=== PATIENT | male | born 1955 | race Caucasian/White ===

== ENCOUNTER 2020-12-28 00:26 | Observation (INO) | payer OTHER, MEDICARE ==
[~2020-12-28] VITALS: Ht 170.2 cm; Wt 88.5 kg
[2020-12-28] VITALS (7 sets, daily range): BP systolic 146–187; BP diastolic 55–91
--- NOTE | 2020-12-28 03:42 | NUR ---
Pt arrived to room 262 via EMS, is a/o x4, neurologically wnl, passed bedside Phelan swallow and allowed to have water glass, no complaints of pain, no dizzyness, nausea. Tricia IVEY at [facility] states that Dr. Mistry has spoken to Dr. Lee about pt neuro status. Will continue to monitor.
--- NOTE | 2020-12-28 07:48 | PDOC1 ---
History and Physical Date of Service: DOS: DATE: 12/28/20 TIME: 07:47 Chief Complaint: Chief Complain: Patient did not feel himself as normal History of Present Illness: HPI: 65-year-old male with past medical history of hemorrhoids, hereditary bone spurs who comes in with complaints of lightheadedness and possible syncope and right- sided weakness. 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 He felt he was paralyzed and his son-in-law and daughter had to drive him to the ED. He needed help to be transported out of the car. He did have right-sided weakness and numbness. He did had also right sided neglect. Denies any blurry vision or loss of vision. Denies headaches, difficulty swallowing, chest pain, shortness of breath, abdominal pain, nausea vomiting or dysuria. Patient does endorse some urinary hesitation and decreased flow. Patient was transferred to [facility] ED for higher level of care due to hospital not having an MRI machine. Past Medical/Surgical History: PMH/PSH: Hemorrhoids, hereditary bone spur Allergies: Allergies: Coded Allergies: No Known Drug Allergies (Unverified , 12/28/20) Family History: Family History: Reviewed with no pertinent findings of stroke in the family Social History: Social History: Denies alcohol, drug or tobacco abuse Current Medications: Current Medications Active Scripts Active Reported No Known Medications Prior To Admisstion (Info) Each 1 Each 1X ROS: Review of Systems Review of System REVIEW OF SYSTEMS: GENERAL: Denies weakness SKIN: No bruising, hair changes or rashes. EYES: No blurred, double or loss of vision. NOSE AND THROAT: No history of nosebleeds, hoarseness or sore throat. HEART: No history of palpitations, chest pain or shortness of breath on exertion. LUNGS: Denies cough, hemoptysis, wheezing or shortness of breath. GASTROINTESTINAL: Denies changes in appetite, nausea, vomiting, diarrhea or constipation. GENITOURINARY: No history of frequency, urgency, hesitancy or nocturia. NEUROLOGIC: Denies history of numbness, tingling, or tremor. PSYCHIATRIC: No history of panic, anxiety or depression. ENDOCRINE: No history of heat or cold intolerance, polyuria or polydipsia. EXTREMITIES: Denies joint pain, pain on walking or stiffness. Physical Exam: Vital Signs: Vital Signs Date Time Temp Pulse Resp B/P (MAP) Pulse Ox O2 Delivery O2 Flow Rate FiO2 12/28/20 04:53 Room Air 12/28/20 02:52 98.0 61 19 172/84 (113) 99 98.0 Physcial Exam: GEN: No apparent distress. Alert and oriented HEENT: Normal cephalic, atraumatic, external auditory canals are patent EYES: Extraocular muscles are intact, pupil are equally round and reactive to light and accommodation MUSCULOSKELETAL: Well developed , well nourished, good range of motion ENDOCRINE: No thyromegaly was palpated LYMPHATICS: No cervical chain or axillary nodes were noted HEMATOPOIETIC: No bruising NECK: Supple, no JVD, no thyromegaly was noted LUNGS: Clear to auscultation in all lung rose without rhonchi or wheezing HEART: RRR, S!, S2 present. Peripheral pulses intact, no obvious murmurs noted ABDOMEN: Soft, nontender. Positive bowel sounds, no organomegaly, normal bowel sounds EXTREMITIES: Without clubbing, cyanosis, or edema. Pedal pulses intact. Negative Homans sign NEUROLOGIC: Normal speech and tone. A&O x 3, moves all extremities, no obvious focal deficits PSYCHIATRIC: Normal affect, normal mood. Stable SKIN: No ulcerations or rashes, good skin turgor, no jaundice VASCULAR: Good capillary refill, neurovascular bundle appears to be intact Labs: Labs: Labs reviewed showed no significant findings Images: Images CTA of the head and neck shows no large vessel occlusion. CXR Impression: 1. No acute cardiopulmonary process. Assessment/Plan Assessment/Plan Acute TIA versus ischemic stroke EKG Onset of symptoms > 4.5 hours Admit to medicine for further workup Neuro consult Pending MRI brain, TTE continue telemonitoring for at least 24 hours contine IVF while NPO maintain normoglycemia with goals of 140-180 permissive HTN with goals between 140-180/90-105 for at least 24 hours if tPA administered, maintain BP goals < 180/105 for at least 24 hours continue ASA 81 daily within 48 hours continue high intensity statins pending PT/OT/speech Justifications for Admission Other Justification KELVIN NOVAK MD Dec 28, 2020 07:48
[2020-12-28] MEDS ORDERED: ACETAMINOPHEN 325 MG TABLET. PO PRN ×2 (08:00→08:45)
[2020-12-28] MEDS ORDERED: DOCUSATE SODIUM 100 MG CAPSULE. PO PRN (08:00)
[2020-12-28] MEDS ORDERED: DEXTROSE 50% 25 GM / 50ML DISP.SYRIN. IV PRN (08:00)
[2020-12-28] MEDS ORDERED: ONDANSETRON PF 4 MG/2 ML VIAL. IVP PRN (08:00)
[2020-12-28] MEDS ORDERED: SENNOSIDES 8.6 MG TABLET PO PRN (08:00)
[2020-12-28] MEDS ORDERED: ASPIRIN RECTAL 300 MG SUPP. PR PRN (08:45)
[2020-12-28] MEDS: ASPIRIN ENTERIC COATED 325 MG TABLET.DR. PO SCH (09:20)
[2020-12-28 09:50] LABS: CHOLESTEROL/HDL RATIO 3.3
--- NOTE | 2020-12-28 12:01 | PDOC2 ---
NEUROLOGY CONSULT Date of Service DOS: DATE: 12/28/20 TIME: 12:00 Reason for Consult Reason for Consult: Transient ischemic attack Referring Physician Referring Physician: Dr. Graham History of Present Illness History of Present Illness The patient is a 65-year-old right-handed male who had dinner with his family last night. He then drove home alone and started to feel confused, 19: 30. He had trouble speaking. There was numbness in the right face, arm, and leg. His family members picked him up and brought him to the [facility] emergency department. I see that peak blood pressure was 192/89. By the time he reached the emergency department he had just a little bit of tingling in the right arm. I discussed the case with Dr. Mistry. We agree that this was most likely a transient ischemic attack or hypertensive encephalopathy, and with the rapid resolution of symptoms and the negative examination, there was no need for alteplase. Patient was transferred down here for further work-up. He denies any prior history of stroke, seizure, or head injury. Past Medical History GI: Hemorrhoids Past Surgical History Past Surgical History: Other (Left knee and foot surgery) Family History Family History: Cancer Social History Social History , no alcohol or tobacco, semiretired Current Medications Current Medications Current Medications Sennosides (Senna) 17.2 mg PRN BID PRN PO CONSTIPATION; Start 12/28/20 at 08:00 Docusate Sodium (Colace) 100 mg PRN DAILY PRN PO HARD STOOLS; Start 12/28/20 at 08:00 Ondansetron HCl (Zofran) 4 mg PRN Q6HRS PRN IVP NAUSEA/VOMITING; Start 12/28/20 at 08:00 Dextrose (Dextrose 50%-Water Syringe) 12.5 gm PRN Q15MIN PRN IV SEE COMMENTS; Start 12/28/20 at 08:00 Acetaminophen (Tylenol) 650 mg PRN Q4HRS PRN PO TEMP OVER 100.4F OR MILD PAIN; Start 12/28/20 at 08:00; Status Cancel Acetaminophen (Tylenol) 650 mg PRN Q6HRS PRN PO MILD PAIN / TEMP > 100.3'F Last administered on 12/28/20at 10:00; Start 12/28/20 at 08:45 Aspirin (Ecotrin) 325 mg DAILYWBKFT PO Last administered on 12/28/20at 09:20; Start 12/28/20 at 09:00 Aspirin (Aspirin Rectal Supp) 300 mg PRN DAILY PRN VT IF UNABLE TO TAKE PO; Start 12/28/20 at 08:45 Atorvastatin Calcium (Lipitor) 40 mg QHS PO ; Start 12/28/20 at 21:00 Active Scripts Active Reported No Known Medications Prior To Admisstion (Info) Each 1 Each MC 1X Allergies Allergies: Coded Allergies: No Known Drug Allergies (Unverified , 12/28/20) ROS Review of System Negative for fever, chills, weight loss, shortness of breath, chest pain, indigestion, hematochezia, melena, and dysuria. Full 14-point review of systems is negative. Physical Exam Physical Examination General: Well-developed, well-nourished white male in no acute distress HEENT: Normocephalic andatraumatic.Temporal arteriespulsatile and nontender. Neck: Supple without bruit, no meningismus Musculoskeletal: Stability:see neurologic. Gait exam:see neurologic. Tone:see neurologic.Strength:see neurologic. Neurological: Mental Status:intact, orientation, memory, attention span/concentration, language, fund of knowledge normal. Cranial Nerves:Pupils equal and reactive to light, extraocular movements areintact, visual rose are full to confrontation. Facial sensation is normal. There is no facial asymmetry. Vestibulo-ocular reflex is intact. Palate elevates and tongue protrudes in midline. All other cranial related problems are negative except as mentioned before.Reflexes:2+ and symmetric with flexor plantar responses. Motor:5/5 strength with normal tone and bulk. Coordination:Finger-nose finger and erph-qj-lyer testing are normal. Rapid alternating movements and fine finger movements are intact. Gait:Normal, including tandem. Sensory:Normal pinprick, vibration, light touch, proprioception. Vitals VITALS Vital Signs Date Time Temp Pulse Resp B/P (MAP) Pulse Ox O2 Delivery O2 Flow Rate FiO2 12/28/20 10:58 98.3 59 16 166/86 (112) 98 Room Air 98.3 Labs Labs Lab Results, [facility] Laboratory Tests Test 12/27/20 19:41 12/27/20 19:44 12/27/20 19:49 Prothrombin Time 10.0 SEC (9.4-11.4) Prothrombin Time INR 1.0 (0.9-1.1) Activated Partial Thromboplast Time 25 SEC (23-33) Glucose (Fingerstick) 91 mg/dL (70-99) White Blood Count 10.8 x10^3/uL (4.0-11.0) Red Blood Count 4.83 x10^6/uL (4.30-5.70) Hemoglobin 14.6 g/dL (13.0-17.5) Hematocrit 43.1 % (39.0-53.0) Mean Corpuscular Volume 89 fL (79-100) Mean Corpuscular Hemoglobin 30 pg (25-35) Mean Corpuscular Hemoglobin Concent 34 g/dL (31-37) Red Cell Distribution Width 13.0 % (11.5-14.5) Platelet Count 191 x10^3/uL (140-400) Neutrophils (%) (Auto) 61 % (31-73) Lymphocytes (%) (Auto) 23 % (24-48) L Monocytes (%) (Auto) 14 % (0-9) H Eosinophils (%) (Auto) 2 % (0-3) Basophils (%) (Auto) 1 % (0-3) Neutrophils # (Auto) 6.6 x10^3uL (1.8-7.7) Lymphocytes # (Auto) 2.5 x10^3/uL (1.0-4.8) Monocytes # (Auto) 1.5 x10^3/uL (0.0-1.1) H Eosinophils # (Auto) 0.2 x10^3/uL (0.0-0.7) Basophils # (Auto) 0.1 x10^3/uL (0.0-0.2) D-Dimer (Jagruti) 0.30 mg/L (0.00-0.50) Sodium Level 143 mmol/L (136-145) Potassium Level 3.7 mmol/L (3.5-5.1) Chloride Level 106 mmol/L (98-107) Carbon Dioxide Level 28 mmol/L (21-32) Anion Gap 9 (6-14) Blood Urea Nitrogen 24 mg/dL (8-26) Creatinine 0.9 mg/dL (0.7-1.3) Estimated GFR (Cockcroft-Gault) 84.4 BUN/Creatinine Ratio 27 (6-20) H Glucose Level 86 mg/dL (70-99) Calcium Level 9.0 mg/dL (8.5-10.1) Magnesium Level 2.1 mg/dL (1.8-2.4) Total Bilirubin 0.5 mg/dL (0.2-1.0) Aspartate Amino Transferase (AST) 22 U/L (15-37) Alanine Aminotransferase (ALT) 36 U/L (16-63) Alkaline Phosphatase 87 U/L (46-116) Troponin I Quantitative < 0.017 ng/mL (0-0.055) Total Protein 6.8 g/dL (6.4-8.2) Albumin 4.0 g/dL (3.4-5.0) Albumin/Globulin Ratio 1.4 (1.0-1.7) Laboratory Tests Test 12/28/20 09:10 Triglycerides Level 54 mg/dL (0-150) Cholesterol Level 124 mg/dL (0-200) LDL Cholesterol, Calculated 75 mg/dL (0-100) VLDL Cholesterol, Calculated 11 mg/dL (0-40) Non-HDL Cholesterol Calculated 86 mg/dL (0-129) HDL Cholesterol 38 mg/dL (40-60) Cholesterol/HDL Ratio 3.3 Laboratory Tests Test 12/28/20 09:10 Triglycerides Level 54 mg/dL (0-150) Cholesterol Level 124 mg/dL (0-200) LDL Cholesterol, Calculated 75 mg/dL (0-100) VLDL Cholesterol, Calculated 11 mg/dL (0-40) Non-HDL Cholesterol Calculated 86 mg/dL (0-129) HDL Cholesterol 38 mg/dL (40-60) Cholesterol/HDL Ratio 3.3 Images Images CTA head and neck INDICATION: Right-sided numbness, aphasia TECHNIQUE: Sequential axial images through the head and neck obtained following the administration 100 mL of Omni 350 IV contrast. Sagittal and coronal reformatted images were reconstructed from the axial data and reviewed. Comparisons: CT head without contrast same day FINDINGS: CTA NECK: Visualized portions of the thoracic aorta are unremarkable. Three-vessel aortic arch configuration common origin brachiocephalic and left common carotid artery and separate origin of the left vertebral artery. Right common carotid artery is patent without evidence of stenosis, occlusion or aneurysm. Cervical segment of the right internal carotid artery is patent without evidence of stenosis, occlusion or aneurysm. Left common carotid artery is patent without evidence of stenosis, occlusion or aneurysm. Cervical segment of the left internal carotid artery is patent without evidence of stenosis, occlusion or aneurysm. Right vertebral artery is patent to basilar confluence without evidence stenosis, occlusion or aneurysm. Left vertebral artery is patent to basilar confluence without evidence of stenosis, occlusion or aneurysm. Visualized paraspinal soft tissues are unremarkable. CTA HEAD: Intracranial segments of the right internal carotid artery are patent without evidence of stenosis, occlusion or aneurysm. Right MCA is patent. Right ROWENA is patent. Intracranial segments of the left internal carotid artery are patent without evidence of stenosis, occlusion or aneurysm. Left MCA is patent. Left ROWENA is patent. Basilar artery is patent without evidence of stenosis, occlusion or aneurysm. engineer automated equipment are patent bilaterally. IMPRESSION: 1. No large vessel occlusion. 2. Patent intracranial cervical arterial vasculature without evidence of stenosis, occlusion or aneurysm. CT brain without contrast. HISTORY: Right-sided weakness CT scan the brain was done without contrast. Sinuses are clear. A skull fracture is not identified. There is no intracranial hemorrhage or subdural hematoma. There is no mass effect or shift of the midline. There is a cavum septum pellucidum between the lateral ventricles. Lateral ventricles are normal in size. An acute CVA is not identified. IMPRESSION: 1. No intracranial hemorrhage or acute finding. Assessment/Plan Assessment/Plan Impression: Transient ischemic attack, but more likely this was just hypertensive encephalopathy. No sign that he had a stroke. Normal lipid panel Recommendations: Treat blood pressure, tighten control if MRI negative for stroke He does not need a statin Rehabilitation screening Does not need the rest of the stroke pathway especially if MRI negative Echocardiogram Aim for discharge later today Follow-up with a primary care to monitor blood pressure Follow-up with me as needed Also discussed with patient's daughter. Thank you for letting me help with the patient's care. JOY KRAFT MD Dec 28, 2020 12:00
--- NOTE | 2020-12-28 14:35 | NUR ---
SS following for discharge planning. SS reviewed pt chart and discussed with pt RN. Pt is from home and is currently on room air. Neurology consulted. Brain MRI and ECHO ordered. Maurer being placed today due to urinary retention. PT/OT/ST ordered. PO diet. PT/OT recommended home independent. SS will continue to follow for discharge planning.
[2020-12-28] MEDS: TAMSULOSIN 0.4 MG CAP.ER.24H. PO SCH (15:15)
--- NOTE | 2020-12-28 15:48 | RAD ---
EXAMINATION: Magnetic resonance imaging (MRI) of the brain and brainstem without contrast 12/28/2020 1 :30 PM HISTORY: Right-sided paresthesias, TIA TECHNIQUE: Multiplanar multi-weighted MRI of the brain and brainstem was performed without intravenou s contrast using the general brain protocol. COMPARISON: None available. FINDINGS: The scalp and calvarium are normal. The superior sagittal sinus demonstrates normal venous flow. The corpus callosum is normal in shape and signal intensity. The posterior fossa is unremarkable. The p ituitary and sella are normal. The brainstem and craniocervical junction are unremarkable. Cavum yamini i interpositi. Diffusion weighted images reveal no hyperintensities to suggest acute cerebral infarction. The suscep tibility weighted sequences reveal no evidence of acute or chronic hemorrhage. The ventricles are nor mal in size and position without evidence of hydrocephalus. The paranasal sinuses are normal. The visualized portions of the mastoids are unremarkable. The orbi ts appear normal. Normal flow voids are demonstrated in the carotid arteries and basilar artery. IMPRESSION: No evidence for acute or subacute ischemia. 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 Electronically signed by: Doris Steel MD (12/28/2020 3:46 PM) [id number]
[2020-12-28] MEDS: amLODIPine BESYLATE 10 MG TABLET PO SCH (16:42)
[2020-12-28] MEDS ORDERED: ATORVASTATIN CALCIUM 40 MG TABLET. PO SCH (21:00)
[2020-12-29 02:18] VITALS: BP 149/60
[2020-12-29 06:37] LABS: CALCIUM 8.5 mg/dL (8.5-10.1); CREATININE 0.9 mg/dL (0.7-1.3); GFR 84.4; MAGNESIUM 2.3 mg/dL (1.8-2.4); PHOSPHORUS 2.7 mg/dL (2.6-4.7); POTASSIUM 4.1 mmol/L (3.5-5.1)
[2020-12-29 06:41] LABS: BASO % 0 % (0-3); EOS # 0.1 x10^3/uL (0.0-0.7); EOS % 2 % (0-3); HEMATOCRIT 42.9 % (39.0-53.0); HEMOGLOBIN 14.5 g/dL (13.0-17.5); LYMPH # 1.6 x10^3/uL (1.0-4.8); LYMPH % 18 % (24-48); MEAN CORPUSCULAR HEMOGLOBIN 30 pg (25-35); MEAN CORPUSCULAR HGB CONC 34 g/dL (31-37); MEAN CORPUSCULAR VOLUME 89 fL (79-100); MONO # 0.9 x10^3/uL (0.0-1.1); MONO % 11 % (0-9); NEUT # 5.9 x10^3/uL (1.8-7.7); NEUT % 69 % (31-73); PLATELET COUNT 187 x10^3/uL (140-400); RED BLOOD COUNT 4.82 x10^6/uL (4.30-5.70); RED CELL DISTRIBUTION WIDTH 13.4 % (11.5-14.5); WHITE BLOOD COUNT 8.5 x10^3/uL (4.0-11.0)
[2020-12-29] MEDS ORDERED: AMLO-187 PO (08:02)
[2020-12-29] MEDS ORDERED: TAMS0.4C97 PO (08:02)
--- NOTE | 2020-12-29 08:03 | DISCH ---
DISCHARGE INSTRUCTIONS Condition on Discharge Condition on Discharge: Stable Activity After Discharge Activity Instructions for Disc: Activity as tolerated Lifting Instructions after Dis: No pulling or pushing Exercise Instruction after Dis: Walk 15 min, 3 x per day Driving Instructions after Dis: Do not drive today Diet after Discharge Diet after Discharge: Low Sodium 2 gm Follow-Up Follow up with: PCP within 2 weeks of discharge for blood pressure control Follow Up With: Neurology as needed EKLVIN NOVAK MD Dec 29, 2020 08:03
[2020-12-29] MEDS: ASPIRIN ENTERIC COATED 325 MG TABLET.DR. PO SCH (09:18)
[2020-12-29] MEDS: amLODIPine BESYLATE 10 MG TABLET PO SCH (09:18)
[2020-12-29] MEDS: TAMSULOSIN 0.4 MG CAP.ER.24H. PO SCH (09:18)
--- NOTE | 2020-12-29 09:59 | NUR ---
SS following up with discharge planning. SS reviewed pt chart and discussed with pt RN. Pt is currently on room air. PT recommended home independent. Discharge order on the chart for home with self care.
--- NOTE | 2020-12-29 10:26 | CARD ---
MR#: [id number] Date of Study: 12/29/2020 Ordering Physician: JOY KRAFT, Referring Physician: JOY KRAFT, Tech: Cici Doyle [facility] APPROVED REPORT EXAM: Two-dimensional and M-mode echocardiogram with Doppler and color Doppler. Other Information Quality : AverageHR: 60bpm Rhythm : NSR INDICATION CVA/TIA RISK FACTORS Hypertension Obesity 2D DIMENSIONS RVDd3.1 (2.9-3.5cm)Left Atrium(2D)4.1 (1.6-4.0cm) IVSd1.2 (0.7-1.1cm)Aortic Root(2D)2.7 (2.0-3.7cm) LVDd4.5 (3.9-5.9cm)LVOT Diameter2.2 (1.8-2.4cm) PWd1.2 (0.7-1.1cm)LVDs2.1 (2.5-4.0cm) FS (%) 52.4 %SV78.0 ml LVEF(%)83.6 (>50%) Aortic Valve AoV Peak Chintan.157.8cm/sAoV VTI31.9cm AO Peak GR.10.0mmHgLVOT Peak Chintan.128.8cm/s AO Mean GR.4mmHgAVA (VMAX)3.22cm2 Mitral Valve MV E Whdfxgnf61.0cm/sMV DECEL [id number] MV A Wnnhczbe65.3cm/sE/A Ratio0.8 Pulmonary Valve PV Peak Rmfcoces651.8cm/s Tricuspid Valve TR P. [id number]/sTR Peak Gr.31mmHg LEFT VENTRICLE The left ventricle is normal size. There is mild to moderate concentric left ventricular hypertrophy. The left ventricular systolic function is normal and the ejection fraction is within normal range. E stimated ejection fraction 60-65%. There is normal LV segmental wall motion. The left ventricular delmar stolic function and filling is normal for age. No left ventricle thrombus noted on this study. RIGHT VENTRICLE The right ventricle is normal size. There is normal right ventricular wall thickness. The right ventr icular systolic function is normal. ATRIA The left atrium size is normal. The right atrium size is normal. The interatrial septum is intact wit h no evidence for an atrial septal defect or patent foramen ovale as noted on 2-D or Doppler imaging. AORTIC VALVE The aortic valve is normal in structure and function. Doppler and Color Flow revealed no significant aortic regurgitation. There is no significant aortic valvular stenosis. MITRAL VALVE The mitral valve is normal in structure and function. There is no evidence of mitral valve prolapse. There is no mitral valve stenosis. Doppler and Color Flow revealed no mitral valve regurgitation note d. TRICUSPID VALVE The tricuspid valve is normal in structure and function. Doppler and Color Flow revealed trace tricus pid regurgitation. Estimated PAP 33 mmHg. There is no tricuspid valve stenosis. PULMONIC VALVE Doppler and Color Flow revealed mild pulmonic valvular regurgitation. There is no pulmonic valvular s tenosis. GREAT VESSELS The aortic root is normal in size. The ascending aorta is normal in size. The IVC is normal in size a nd collapses >50% with inspiration. PERICARDIAL EFFUSION There is no evidence of significant pericardial effusion. Critical Notification Critical Value: No <Conclusion> The left ventricular systolic function is normal and the ejection fraction is within normal range. E stimated ejection fraction 60-65%. There is normal LV segmental wall motion. There is mild to moderate concentric left ventricular hypertrophy. Signed by : Bharath Figueroa, Electronically Approved : 12/29/2020 10:26:00
[2020-12-29 11:00] VITALS: BP 147/74
[2020-12-29] MEDS ORDERED: ASPI-886 PO (12:23)
--- NOTE | 2020-12-29 13:03 | PDOC ---
PROGRESS NOTES Date of Service DATE: 12/29/20 TIME: 12:59 Assessment Transient ischemic attack, but more likely this was just hypertensive encephalopathy. No sign that he had a stroke. He still has some persistent visual symptoms and tingling in the right arm Normal lipid panel Plan Okay for discharge Amlodipine He does not need a statin Ecotrin 81 mg daily Follow-up with me as needed Subjective Complains of some distorted vision in the right eye or right visual field, also tingling in the right arm Objective Vital Signs Date Time Temp Pulse Resp B/P (MAP) Pulse Ox O2 Delivery O2 Flow Rate FiO2 12/29/20 11:00 98.7 60 16 147/74 (98) 97 Room Air 98.7 Intake and Output 12/29/20 07:00 Intake Total 500 ml Balance 500 ml Intake Oral 500 ml # Voids 2 PHYSICAL EXAM Alert. Oriented to time, place and person. PERRL. EOMI. CN: no focal findings. Muscle tone: normal. Muscle strength: 5/5 DTR: 2+ Plantar reflex: Flexor Gait: not examined in bed. Sensory exam: no abnormal findings. No cerebellar signs elicited. Review of Relevant I have reviewed the following items richard (where applicable) has been applied. Labs Laboratory Tests Test 12/28/20 09:10 12/29/20 05:53 12/29/20 05:58 Triglycerides Level 54 mg/dL (0-150) Cholesterol Level 124 mg/dL (0-200) LDL Cholesterol, Calculated 75 mg/dL (0-100) VLDL Cholesterol, Calculated 11 mg/dL (0-40) Non-HDL Cholesterol Calculated 86 mg/dL (0-129) HDL Cholesterol 38 mg/dL (40-60) Cholesterol/HDL Ratio 3.3 White Blood Count 8.5 x10^3/uL (4.0-11.0) Red Blood Count 4.82 x10^6/uL (4.30-5.70) Hemoglobin 14.5 g/dL (13.0-17.5) Hematocrit 42.9 % (39.0-53.0) Mean Corpuscular Volume 89 fL (79-100) Mean Corpuscular Hemoglobin 30 pg (25-35) Mean Corpuscular Hemoglobin Concent 34 g/dL (31-37) Red Cell Distribution Width 13.4 % (11.5-14.5) Platelet Count 187 x10^3/uL (140-400) Neutrophils (%) (Auto) 69 % (31-73) Lymphocytes (%) (Auto) 18 % (24-48) Monocytes (%) (Auto) 11 % (0-9) Eosinophils (%) (Auto) 2 % (0-3) Basophils (%) (Auto) 0 % (0-3) Neutrophils # (Auto) 5.9 x10^3/uL (1.8-7.7) Lymphocytes # (Auto) 1.6 x10^3/uL (1.0-4.8) Monocytes # (Auto) 0.9 x10^3/uL (0.0-1.1) Eosinophils # (Auto) 0.1 x10^3/uL (0.0-0.7) Basophils # (Auto) 0.0 x10^3/uL (0.0-0.2) Sodium Level 141 mmol/L (136-145) Potassium Level 4.1 mmol/L (3.5-5.1) Chloride Level 108 mmol/L (98-107) Carbon Dioxide Level 26 mmol/L (21-32) Anion Gap 7 (6-14) Blood Urea Nitrogen 14 mg/dL (8-26) Creatinine 0.9 mg/dL (0.7-1.3) Estimated GFR (Cockcroft-Gault) 84.4 Glucose Level 109 mg/dL (70-99) Calcium Level 8.5 mg/dL (8.5-10.1) Phosphorus Level 2.7 mg/dL (2.6-4.7) Magnesium Level 2.3 mg/dL (1.8-2.4) Laboratory Tests Test 12/29/20 05:53 12/29/20 05:58 White Blood Count 8.5 x10^3/uL (4.0-11.0) Red Blood Count 4.82 x10^6/uL (4.30-5.70) Hemoglobin 14.5 g/dL (13.0-17.5) Hematocrit 42.9 % (39.0-53.0) Mean Corpuscular Volume 89 fL (79-100) Mean Corpuscular Hemoglobin 30 pg (25-35) Mean Corpuscular Hemoglobin Concent 34 g/dL (31-37) Red Cell Distribution Width 13.4 % (11.5-14.5) Platelet Count 187 x10^3/uL (140-400) Neutrophils (%) (Auto) 69 % (31-73) Lymphocytes (%) (Auto) 18 % (24-48) Monocytes (%) (Auto) 11 % (0-9) Eosinophils (%) (Auto) 2 % (0-3) Basophils (%) (Auto) 0 % (0-3) Neutrophils # (Auto) 5.9 x10^3/uL (1.8-7.7) Lymphocytes # (Auto) 1.6 x10^3/uL (1.0-4.8) Monocytes # (Auto) 0.9 x10^3/uL (0.0-1.1) Eosinophils # (Auto) 0.1 x10^3/uL (0.0-0.7) Basophils # (Auto) 0.0 x10^3/uL (0.0-0.2) Sodium Level 141 mmol/L (136-145) Potassium Level 4.1 mmol/L (3.5-5.1) Chloride Level 108 mmol/L (98-107) Carbon Dioxide Level 26 mmol/L (21-32) Anion Gap 7 (6-14) Blood Urea Nitrogen 14 mg/dL (8-26) Creatinine 0.9 mg/dL (0.7-1.3) Estimated GFR (Cockcroft-Gault) 84.4 Glucose Level 109 mg/dL (70-99) Calcium Level 8.5 mg/dL (8.5-10.1) Phosphorus Level 2.7 mg/dL (2.6-4.7) Magnesium Level 2.3 mg/dL (1.8-2.4) Medications Current Medications Sennosides (Senna) 17.2 mg PRN BID PRN PO CONSTIPATION; Start 12/28/20 at 08:00 Docusate Sodium (Colace) 100 mg PRN DAILY PRN PO HARD STOOLS; Start 12/28/20 at 08:00 Ondansetron HCl (Zofran) 4 mg PRN Q6HRS PRN IVP NAUSEA/VOMITING; Start 12/28/20 at 08:00 Dextrose (Dextrose 50%-Water Syringe) 12.5 gm PRN Q15MIN PRN IV SEE COMMENTS; Start 12/28/20 at 08:00 Acetaminophen (Tylenol) 650 mg PRN Q4HRS PRN PO TEMP OVER 100.4F OR MILD PAIN; Start 12/28/20 at 08:00; Status Cancel Acetaminophen (Tylenol) 650 mg PRN Q6HRS PRN PO MILD PAIN / TEMP > 100.3'F Last administered on 12/28/20at 10:00; Start 12/28/20 at 08:45 Aspirin (Ecotrin) 325 mg DAILYWBKFT PO Last administered on 12/29/20at 09:18; Start 12/28/20 at 09:00 Aspirin (Aspirin Rectal Supp) 300 mg PRN DAILY PRN ME IF UNABLE TO TAKE PO; Start 12/28/20 at 08:45 Atorvastatin Calcium (Lipitor) 40 mg QHS PO ; Start 12/28/20 at 21:00 Tamsulosin HCl (Flomax) 0.4 mg DAILY PO Last administered on 12/29/20at 09:18; Start 12/28/20 at 15:00 Amlodipine Besylate (Norvasc) 10 mg DAILY PO Last administered on 12/29/20at 09:18; Start 12/28/20 at 16:30 Active Scripts Active Amlodipine Besylate 10 Mg Tablet 10 Mg PO DAILY 30 Days Flomax (Tamsulosin Hcl) 0.4 Mg Cap.er.24h 0.4 Mg PO DAILY 30 Days Reported Aspirin Ec (Aspirin) 81 Mg Tablet. 1 Tab PO DAILY Vitals/I & O Vital Sign - Last 24 Hours 12/28/20 12/28/20 12/28/20 12/28/20 15:00 16:42 19:19 20:00 Temp 97.9 97.9 97.9 97.9 Pulse 60 56 62 Resp 16 16 B/P (MAP) 168/84 (112) 183/89 173/71 (105) Pulse Ox 99 O2 Delivery Room Air Room Air Room Air 12/28/20 12/29/20 12/29/20 12/29/20 23:18 02:18 08:15 09:18 Temp 98.0 98.0 98.0 98.0 Pulse 58 66 63 Resp 16 16 B/P (MAP) 146/55 (85) 149/60 (89) 138/77 Pulse Ox 98 97 O2 Delivery Room Air Room Air Room Air 12/29/20 11:00 Temp 98.7 98.7 Pulse 60 Resp 16 B/P (MAP) 147/74 (98) Pulse Ox 97 O2 Delivery Room Air Intake and Output 12/28/20 12/28/20 12/29/20 15:00 23:00 07:00 Intake Total 180 ml 120 ml 200 ml Balance 180 ml 120 ml 200 ml Images MRI brain: The scalp and calvarium are normal. The superior sagittal sinus demonstrates normal venous flow. The corpus callosum is normal in shape and signal intensity. The posterior fossa is unremarkable. The pituitary and sella are normal. The brainstem and craniocervical junction are unremarkable. Cavum veli interpositi. Diffusion weighted images reveal no hyperintensities to suggest acute cerebral infarction. The susceptibility weighted sequences reveal no evidence of acute or chronic hemorrhage. The ventricles are normal in size and position without evidence of hydrocephalus. The paranasal sinuses are normal. The visualized portions of the mastoids are unremarkable. The orbits appear normal. Normal flow voids are demonstrated in the carotid arteries and basilar artery. IMPRESSION: No evidence for acute or subacute ischemia. 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 Echocardiogram: LEFT VENTRICLE The left ventricle is normal size. There is mild to moderate concentric left ventricular hypertrophy. The left ventricular systolic function is normal and the ejection fraction is within normal range. Estimated ejection fraction 60- 65%. There is normal LV segmental wall motion. The left ventricular diastolic function and filling is normal for age. No left ventricle thrombus noted on this study. RIGHT VENTRICLE The right ventricle is normal size. There is normal right ventricular wall thickness. The right ventricular systolic function is normal. ATRIA The left atrium size is normal. The right atrium size is normal. The interatrial septum is intact with no evidence for an atrial septal defect or patent foramen ovale as noted on 2-D or Doppler imaging. AORTIC VALVE The aortic valve is normal in structure and function. Doppler and Color Flow revealed no significant aortic regurgitation. There is no significant aortic valvular stenosis. MITRAL VALVE The mitral valve is normal in structure and function. There is no evidence of mitral valve prolapse. There is no mitral valve stenosis. Doppler and Color Flow revealed no mitral valve regurgitation noted. TRICUSPID VALVE The tricuspid valve is normal in structure and function. Doppler and Color Flow revealed trace tricuspid regurgitation. Estimated PAP 33 mmHg. There is no tricuspid valve stenosis. PULMONIC VALVE Doppler and Color Flow revealed mild pulmonic valvular regurgitation. There is no pulmonic valvular stenosis. GREAT VESSELS The aortic root is normal in size. The ascending aorta is normal in size. The IVC is normal in size and collapses >50% with inspiration. PERICARDIAL EFFUSION There is no evidence of significant pericardial effusion. Critical Notification Critical Value: No <Conclusion> The left ventricular systolic function is normal and the ejection fraction is within normal range. Estimated ejection fraction 60-65%. There is normal LV segmental wall motion. There is mild to moderate concentric left ventricular hypertrophy. Justicifation of Admission Dx: Justifications for Admission: Justification of Admission Dx: Yes Comments: hypertensive encephalopathy, rule out stroke JOY KRAFT MD Dec 29, 2020 13:03
--- NOTE | 2020-12-29 13:21 | NUR ---
Patient was discharged home with daughter around 1315. Discharge education gone over with the patient and the daughter in regards to his medication and POC. Patients medications were sent straight to his pharmacy of choice which was [facility]. IVs both discontinued today without any complications noted. No concerns noted at discharge.
[2020-12-30] MEDS ORDERED: ASPIRIN ENTERIC COATED 81 MG TABLET.DR. PO SCH (08:00)
--- NOTE | 2020-12-31 16:01 | PDOC3 ---
[facility]-Discharge Summary Date of Admission: Date of Admission: Dec 28, 2020 Date of Discharge: Date of Discharge: Dec 29, 2020 Consults: Consults: Neurology recs: Okay for discharge Amlodipine He does not need a statin Ecotrin 81 mg daily Follow-up with me as needed Hospital Course: Hospital Course: 65-year-old male with past medical history of hemorrhoids, hereditary bone spurs who comes in with complaints of lightheadedness and possible syncope and right- sided weakness. Patient states that last night after dinner with his family when leaving the restaurant patient was driving and he had to thread puller because he knew something was not right. He felt he was paralyzed and his son-in-law and daughter had to drive him to the ED. He needed help to be transported out of the car. He did have right-sided weakness and numbness. He did had also right sided neglect. Denies any blurry vision or loss of vision. Denies headaches, difficulty swallowing, chest pain, shortness of breath, abdominal pain, nausea vomiting or dysuria. Patient does endorse some urinary hesitation and decreased flow. Patient was transferred to [facility] ED for higher level of care due to hospital not having an MRI machine. Underwent full neuro evaluation including MRI brain and TTE. All was negative. By day of discharge, pt was clinically stable and ready for discharge. Rest of hospital course was uneventful Disposition: Disposition/Orders: D/C to Home Activity: Activity: Resume previous activity Diet: Diet: Cardiac Medications: Home Meds Active Scripts Amlodipine Besylate (AMLODIPINE BESYLATE) 10 Mg Tablet, 10 MG PO DAILY for blood pressure for 30 Days, #30 TAB Prov:KELVIN NOVAK MD 12/29/20 Tamsulosin Hcl (FLOMAX) 0.4 Mg Cap.er.24h, 0.4 MG PO DAILY for BPH for 30 Days, #30 CAP.SR Prov:KELVIN NOVAK MD 12/29/20 Reported Medications Aspirin (ASPIRIN EC) 81 Mg Tablet.dr, 1 TAB PO DAILY for TIA, #30 TAB 3 Refills 12/29/20 Discontinued Reported Medications Info (NO KNOWN MEDICATIONS PRIOR TO ADMISSTION) Each, 1 EACH MC 1X for no home medications, EACH 12/28/20 Scheduled Amlodipine Besylate (Amlodipine Besylate), 10 MG PO DAILY Aspirin (Aspirin Ec), 1 TAB PO DAILY, (Reported) Tamsulosin Hcl (Flomax), 0.4 MG PO DAILY Discontinued Medications Info (No Known Medications Prior To Admisstion), 1 EACH 1X, (Reported) Total Time: Total Time: Total time spent was 40 minutes in preparing scripts, discharge planning with SW and RN, and preparing this discharge summary. Patient seen and examined on day of discharge. Justicifation of Admission Dx: Justifications for Admission: Justification of Admission Dx: Yes KELVIN NOVAK MD Dec 31, 2020 16:01
== END 2020-12-29 13:20 | disposition home or self-care (01) ==
LOC: 2 SOUTH 00:26 → INTOOBSV 00:26
PROVIDERS: ADMIT Family Medicine; ATTEND Family Medicine
DX: G45.9 Transient cerebral ischemic attack, unspecified (principal); I67.4 Hypertensive encephalopathy; I10 Essential (primary) hypertension; K64.9 Unspecified hemorrhoids; Z79.82 Long term (current) use of aspirin
CPT/HCPCS: 36415; 70551; 80048; 80061; 83735; 84100; 85025; 92610; 93306; 97161; G0378; G0379